=== PATIENT | male | born 1945 | race Caucasian/White ===

== ENCOUNTER 2017-01-15 07:47 | Outpatient (CLI) | payer MEDICARE ==
--- NOTE | 2017-01-15 09:18 | ULT ---
ULTRASOUND RETROPERITONEUM LIMTED: (ABDOMINAL AORTA) HISTORY: [id number] male for abdominal aortic aneurysm screening. FINDINGS: The caliber of the abdominal aorta is as follows (in cm): Proximal: 1.8 x 1.8 cm Mid: 2 x 1.6 cm Distal: 1.7 x 1.5 cm IMPRESSION: No abdominal aortic aneurysm. MOOKIE [place] POS: NEREIDA
== END 2017-01-15 07:48 | disposition home or self-care (01) ==
LOC: ULT 07:47
PROVIDERS: ATTEND Family Medicine
DX: Z13.6 Encounter for screening for cardiovascular disorders (principal); Z00.00 Encounter for general adult medical examination without abnormal findings
CPT/HCPCS: 76775

== ENCOUNTER 2023-07-26 05:36 | Inpatient (IN) | payer OTHER ==
[2023-07-26] MEDS ORDERED: Ondansetron PF 4 MG/2 ML Vial IVP PRN (08:09)
[2023-07-26] MEDS ORDERED: Glucagon 1 MG/ML KIT IM PRN (08:09)
[2023-07-26] MEDS ORDERED: Dextrose 5% in Water 1,000 ML IV PRN (08:09)
[2023-07-26] MEDS ORDERED: Dextrose 50% Abboject 50 ML SYRINGE SLOW IVP PRN (08:09)
[2023-07-26] MEDS ORDERED: Morphine 2 MG/ML VIAL SLOW IVP PRN (08:12)
[2023-07-26] MEDS: Sodium Chloride 0.9% 1,000 ML IV SCH (09:29)
[2023-07-26] MEDS: Enoxaparin 40 MG (0.4 mL) SYRINGE SC SCH (09:30)
[2023-07-26] MEDS ORDERED: PROPOFOL 200 MG/20 ML VIAL ONE (13:11)
[2023-07-26] MEDS ORDERED: Lidocaine 1% PF 5 ML VIAL ONE (13:11)
[2023-07-26] MEDS ORDERED: PROPOFOL 20 ML ONE ×3 (13:27→13:52)
[2023-07-26] MEDS: Pantoprazole 40 MG VIAL IVP SCH ×2 (16:58→20:40)
[2023-07-26] MEDS: HumaLOG 300 UNITS/3 ML VIAL SC PRN (19:03)
[2023-07-27 04:19] LABS: #Basophils 0.04 10x3/uL (0.0-0.2); %Basophils 0.6 % (0.0-1.0); %Eosinophils 2.6 % (0.0-10.0); %Lymphocytes 18.8 % (21.0-51.0); %Monocytes 8.9 % (0.0-10.0); %Neutrophils 68.6 % (42.0-75.0); Hematocrit 35.3 % (42.0-52.0); Mean Corpuscular Hemoglobin 30.7 pg (27.0-31.0); Mean Corpuscular Volume 90.3 fL (78.0-98.0); Mean Platelet Volume 9.6 fL (7.4-10.4); Platelet Count 159 10x3/uL (130-400); RBC Distribution Width 13.3 % (11.5-14.5); Red Blood Cell (RBC) Count 3.91 mill/uL (4.70-6.10)
[2023-07-27 04:46] LABS: Anion Gap 12 mmol/L (10-20); BUN (Urea Nitrogen) 16 mg/dL (8.4-25.7); Calc. Creatinine Clearance 92 mL/min (70-130); Calcium 7.9 mg/dL (7.8-10.44); Carbon Dioxide 24 mmol/L (23-31); Chloride 103 mmol/L (98-107); Estimated GFR 92; Glucose 153 mg/dL (83-110); Potassium 3.7 mmol/L (3.5-5.1); Sodium 135 mmol/L (136-145)
[2023-07-27] MEDS ORDERED: Magnevist 469MG/ML 20 ML VIAL ONE (13:09)
[2023-07-28] MEDS: hydrALAZINE 20 MG/ML VIAL SLOW IVP PRN (00:35)
[2023-07-28 05:11] LABS: #Basophils 0.04 10x3/uL (0.0-0.2); %Basophils 0.8 % (0.0-1.0); %Eosinophils 3.7 % (0.0-10.0); %Lymphocytes 27.2 % (21.0-51.0); %Monocytes 8.9 % (0.0-10.0); Hematocrit 36.3 % (42.0-52.0); Hemoglobin 12.6 g/dL (14.0-18.0); Mean Corpuscular HGB CONC 34.7 g/dL (32.0-36.0); Mean Corpuscular Hemoglobin 30.1 pg (27.0-31.0); Mean Corpuscular Volume 86.8 fL (78.0-98.0); Mean Platelet Volume 9.5 fL (7.4-10.4); Platelet Count 172 10x3/uL (130-400); RBC Distribution Width 13.2 % (11.5-14.5); Red Blood Cell (RBC) Count 4.18 mill/uL (4.70-6.10)
[2023-07-28 05:31] LABS: Anion Gap 12 mmol/L (10-20); BUN (Urea Nitrogen) 9 mg/dL (8.4-25.7); Calc. Creatinine Clearance 100 mL/min (70-130); Calcium 7.7 mg/dL (7.8-10.44); Carbon Dioxide 24 mmol/L (23-31); Chloride 105 mmol/L (98-107); Estimated GFR 95; Glucose 151 mg/dL (83-110); Potassium 3.3 mmol/L (3.5-5.1); Sodium 138 mmol/L (136-145)
[2023-07-28] MEDS: Hydrochlorothiazide 25 MG TAB PO SCH (11:24)
[2023-07-28] MEDS: Losartan 25 MG TAB PO SCH (11:24)
[2023-07-28] MEDS: Polyethylene Glycol 3350 17 GM Packet PO SCH (16:55)
[2023-07-29 04:40] LABS: #Basophils Less than 0.03 10x3/uL (0.0-0.2); %Basophils 0.2 % (0.0-1.0); %Eosinophils 4.4 % (0.0-10.0); %Lymphocytes 25.8 % (21.0-51.0); %Monocytes 10.7 % (0.0-10.0); %Neutrophils 58.7 % (42.0-75.0); Hematocrit 36.7 % (42.0-52.0); Hemoglobin 12.7 g/dL (14.0-18.0); Mean Corpuscular HGB CONC 34.6 g/dL (32.0-36.0); Mean Corpuscular Hemoglobin 30.7 pg (27.0-31.0); Mean Corpuscular Volume 88.6 fL (78.0-98.0); Mean Platelet Volume 9.7 fL (7.4-10.4); Platelet Count 186 10x3/uL (130-400); RBC Distribution Width 13.2 % (11.5-14.5); Red Blood Cell (RBC) Count 4.14 mill/uL (4.70-6.10)
[2023-07-29 05:13] LABS: Anion Gap 11 mmol/L (10-20); BUN (Urea Nitrogen) 7 mg/dL (8.4-25.7); Calc. Creatinine Clearance 94 mL/min (70-130); Calcium 8.1 mg/dL (7.8-10.44); Carbon Dioxide 24 mmol/L (23-31); Chloride 104 mmol/L (98-107); Estimated GFR 93; Glucose 178 mg/dL (83-110); Potassium 3.4 mmol/L (3.5-5.1); Sodium 136 mmol/L (136-145)
[2023-07-29 07:13] VITALS: BMI 23.7
[2023-07-29] MEDS: Polyethylene Glycol 3350 17 GM Packet PO SCH (09:37)
[2023-07-29] MEDS: Losartan 25 MG TAB PO SCH (09:37)
[2023-07-29] MEDS: Hydrochlorothiazide 25 MG TAB PO SCH (09:37)
[2023-07-30 05:25] LABS: #Basophils 0.03 10x3/uL (0.0-0.2); %Basophils 0.5 % (0.0-1.0); %Eosinophils 4.7 % (0.0-10.0); %Lymphocytes 25.2 % (21.0-51.0); %Monocytes 10.6 % (0.0-10.0); %Neutrophils 58.8 % (42.0-75.0); Hematocrit 39.6 % (42.0-52.0); Hemoglobin 13.7 g/dL (14.0-18.0); Mean Corpuscular HGB CONC 34.6 g/dL (32.0-36.0); Mean Corpuscular Volume 86.8 fL (78.0-98.0); Mean Platelet Volume 9.1 fL (7.4-10.4); Platelet Count 183 10x3/uL (130-400); RBC Distribution Width 13.4 % (11.5-14.5); Red Blood Cell (RBC) Count 4.56 mill/uL (4.70-6.10)
[2023-07-30 05:44] LABS: Anion Gap 11 mmol/L (10-20); BUN (Urea Nitrogen) 7 mg/dL (8.4-25.7); Calc. Creatinine Clearance 100 mL/min (70-130); Calcium 8.4 mg/dL (7.8-10.44); Carbon Dioxide 24 mmol/L (23-31); Chloride 102 mmol/L (98-107); Estimated GFR 93; Glucose 213 mg/dL (83-110); Potassium 3.6 mmol/L (3.5-5.1); Sodium 133 mmol/L (136-145)
[2023-07-30] MEDS: HumaLOG 300 UNITS/3 ML VIAL SC PRN (22:16)
[2023-07-31] MEDS: traZODone HCl 50 MG TAB PO SCH ×2 (00:42→20:37)
[2023-07-31 05:10] LABS: Anion Gap 11 mmol/L (10-20); BUN (Urea Nitrogen) 7 mg/dL (8.4-25.7); Calc. Creatinine Clearance 94 mL/min (70-130); Calcium 8.8 mg/dL (7.8-10.44); Carbon Dioxide 25 mmol/L (23-31); Chloride 100 mmol/L (98-107); Estimated GFR 92; Glucose 232 mg/dL (83-110); Potassium 3.5 mmol/L (3.5-5.1); Sodium 132 mmol/L (136-145)
[2023-07-31] MEDS ORDERED: traZODone HCl 50 MG TAB PO SCH (09:00)
[2023-07-31] MEDS: NS 0.9% w/ 40 MEQ KCL 1,000 ML IV SCH (09:20)
[2023-07-31] MEDS: FLUoxetine HCl 20 MG CAP PO SCH (09:21)
[2023-07-31] MEDS: Acetaminophen 325 MG TAB PO PRN (11:00)
[2023-08-01 05:45] LABS: #Basophils 0.03 10x3/uL (0.0-0.2); %Basophils 0.7 % (0.0-1.0); %Eosinophils 6.8 % (0.0-10.0); %Lymphocytes 30.8 % (21.0-51.0); %Neutrophils 49.3 % (42.0-75.0); Hematocrit 38.8 % (42.0-52.0); Hemoglobin 13.1 g/dL (14.0-18.0); Mean Corpuscular HGB CONC 33.8 g/dL (32.0-36.0); Mean Corpuscular Hemoglobin 29.6 pg (27.0-31.0); Mean Corpuscular Volume 87.8 fL (78.0-98.0); Platelet Count 196 10x3/uL (130-400); RBC Distribution Width 13.6 % (11.5-14.5); Red Blood Cell (RBC) Count 4.42 mill/uL (4.70-6.10)
[2023-08-01 06:06] LABS: Anion Gap 15 mmol/L (10-20); BUN (Urea Nitrogen) 8 mg/dL (8.4-25.7); Calc. Creatinine Clearance 91 mL/min (70-130); Calcium 8.1 mg/dL (7.8-10.44); Carbon Dioxide 22 mmol/L (23-31); Chloride 108 mmol/L (98-107); Estimated GFR 91; Glucose 205 mg/dL (83-110); Magnesium 1.8 mg/dL (1.6-2.6); Potassium 4.3 mmol/L (3.5-5.1); Sodium 141 mmol/L (136-145)
[2023-08-01 08:40] VITALS: BP 125/75; TEMP 98.3
[2023-08-01] MEDS: Lactated Ringer's 1,000 ML IV SCH (09:19)
== END 2023-08-01 15:52 | disposition home or self-care (01) | DRG 380 ==
LOC: MSONC 05:36 → OBSVTOIN 08:09
PROVIDERS: ADMIT Internal Medicine; ATTEND Internal Medicine
PROC: 0DB98ZX Excision of Duodenum, Via Natural or Artificial Opening Endoscopic, Diagnostic (ICD-10-PCS; principal; 2023-07-26)
PROC: 0DB78ZX Excision of Stomach, Pylorus, Via Natural or Artificial Opening Endoscopic, Diagnostic (ICD-10-PCS; 2023-07-26)
DX: K31.5 Obstruction of duodenum (principal); E11.10 Type 2 diabetes mellitus with ketoacidosis without coma; K22.10 Ulcer of esophagus without bleeding; N17.9 Acute kidney failure, unspecified; E87.1 Hypo-osmolality and hyponatremia; K56.609 Unspecified intestinal obstruction, unspecified as to partial versus complete obstruction; I10 Essential (primary) hypertension; K21.00 Gastro-esophageal reflux disease with esophagitis, without bleeding; K26.9 Duodenal ulcer, unspecified as acute or chronic, without hemorrhage or perforation; E11.65 Type 2 diabetes mellitus with hyperglycemia; K31.1 Adult hypertrophic pyloric stenosis; K29.00 Acute gastritis without bleeding; E11.9 Type 2 diabetes mellitus without complications; Z87.891 Personal history of nicotine dependence; Z79.4 Long term (current) use of insulin; Z88.0 Allergy status to penicillin; Z88.2 Allergy status to sulfonamides; Z79.899 Other long term (current) drug therapy; Z90.49 Acquired absence of other specified parts of digestive tract
CPT/HCPCS: 36415; 36416; 70450; 70553; 71045; 74177; 80048; 80053; 81001; 82010; 82805; 83036; 83735; 84443; 85025; 88305; 88342; 93005; 96374; 96375; A9579; C9113; J0360; J0696; J1650; J1815; J2704; J3480; J7050; J7120; Q9967; S0028

== ENCOUNTER 2023-09-05 12:18 | Day surgery (SDC) | payer OTHER ==
[2023-09-05] MEDS ORDERED: PROPOFOL 0 ML ONE (13:51)
[2023-09-05] MEDS ORDERED: Lidocaine 1% PF 5 ML VIAL ONE (14:17)
[2023-09-05] MEDS ORDERED: SUCCINYLCHOLINE/SOD CL,ISO/PF 200 MG/10 ML SYRINGE FS ONE (14:20)
[2023-09-05] MEDS ORDERED: Ondansetron PF 4 MG/2 ML Vial ONE (14:27)
[2023-09-05] MEDS ORDERED: Esmolol 100 MG/10 ML VIAL ONE (14:38)
== END 2023-09-05 16:47 | disposition home or self-care (01) ==
LOC: SDC 12:18
PROVIDERS: ATTEND Internal Medicine Gastroenterology
PROC: 0D798ZZ Dilation of Duodenum, Via Natural or Artificial Opening Endoscopic (ICD-10-PCS; principal; 2023-09-05)
DX: K31.5 Obstruction of duodenum (principal); I10 Essential (primary) hypertension; E78.00 Pure hypercholesterolemia, unspecified; E11.9 Type 2 diabetes mellitus without complications; F41.9 Anxiety disorder, unspecified; F17.220 Nicotine dependence, chewing tobacco, uncomplicated; Z79.4 Long term (current) use of insulin; Z79.899 Other long term (current) drug therapy; Z88.2 Allergy status to sulfonamides; Z88.0 Allergy status to penicillin
CPT/HCPCS: 43245; 82962; J2405; 36416; J2704

== ENCOUNTER 2023-09-13 12:56 | Outpatient (CLI) | payer OTHER ==
[2023-09-13 14:39] LABS: #Basophils 0.03 10x3/uL (0.0-0.2); #Eosinphils 0.15 10x3/uL (0.0-0.5); #Monocytes 0.52 10x3/uL (0.0-1.1); #Neutrophils 3.28 10x3/uL (1.5-8.4); %Basophils 0.6 % (0.0-2.0); %Eosinophils 2.8 % (0.0-6.0); %Lymphocytes 23.9 % (18.0-47.0); %Monocytes 9.9 % (0.0-10.0); %Neutrophils 62.2 % (40.0-75.0); Hemoglobin 14.8 g/dL (13.5-17.5); Mean Corpuscular HGB CONC 34.4 g/dL (32.0-36.0); Mean Corpuscular Hemoglobin 30.3 pg (27.0-33.0); Mean Corpuscular Volume 88.1 fL (81.2-95.1); Mean Platelet Volume 9.2 fL (7.4-10.4); Platelet Count 230 10x3/uL (150-450); RBC Distribution Width 13.1 % (11.5-14.5); Red Blood Cell (RBC) Count 4.88 10x6/uL (4.32-5.72); White Blood Cell (WBC) Count 5.3 10x3/uL (3.5-10.5)
[2023-09-13 15:24] LABS: Anion Gap 17 mmol/L (10-20); BUN (Urea Nitrogen) 13 mg/dL (8.4-25.7); Calc. Creatinine Clearance 0 mL/min (70-130); Calcium 9.3 mg/dL (7.8-10.44); Carbon Dioxide 24 mmol/L (23-31); Chloride 93 mmol/L (98-107); Estimated GFR 88; Glucose 252 mg/dL (83-110); Potassium 4.7 mmol/L (3.5-5.1); Sodium 129 mmol/L (136-145)
== END 2023-09-13 12:57 | disposition home or self-care (01) ==
LOC: LABBT 12:56
PROVIDERS: ATTEND Surgery
DX: Z01.818 Encounter for other preprocedural examination (principal); K31.1 Adult hypertrophic pyloric stenosis
CPT/HCPCS: 80048; 85025; 93005; 93010

== ENCOUNTER 2023-10-06 14:01 | Inpatient (IN) | payer OTHER, MEDICARE ==
[~2023-10-06 14:01] MED LIST: Iopamidol-370 76% 500 ML MDV (1 ML CHARGE) ONE
[2023-10-06 14:52] LABS: #Basophils 0.03 10x3/uL (0.0-0.2); %Basophils 0.4 % (0.0-1.0); %Eosinophils 2.4 % (0.0-10.0); %Lymphocytes 20.3 % (21.0-51.0); %Monocytes 12.2 % (0.0-10.0); %Neutrophils 64.3 % (42.0-75.0); Hematocrit 45.1 % (42.0-52.0); Hemoglobin 15.7 g/dL (14.0-18.0); Mean Corpuscular HGB CONC 34.8 g/dL (32.0-36.0); Mean Corpuscular Hemoglobin 30.2 pg (27.0-31.0); Mean Corpuscular Volume 86.7 fL (78.0-98.0); Mean Platelet Volume 9.1 fL (7.4-10.4); Platelet Count 283 10x3/uL (130-400)
[2023-10-06 15:11] LABS: ALT (SGPT) 24 U/L (8-55); AST (SGOT) 18 U/L (5-34); Albumin 3.3 g/dL (3.4-4.8); Alkaline Phosphatase 94 U/L (40-110); Anion Gap 15 mmol/L (10-20); BUN (Urea Nitrogen) 13 mg/dL (8.4-25.7); Calc. Creatinine Clearance 0 mL/min (70-130); Calcium 9.3 mg/dL (7.8-10.44); Carbon Dioxide 25 mmol/L (23-31); Chloride 93 mmol/L (98-107); Estimated GFR 88; Globulin 2.7 g/dL (2.4-3.5); Glucose 350 mg/dL (83-110); Lipase 7 U/L (8-78); Magnesium 1.7 mg/dL (1.6-2.6); Sodium 129 mmol/L (136-145)
[2023-10-06 15:14] LABS: Troponin I 0.015 ng/mL (< 0.028)
[2023-10-06 15:19] LABS: Bacteria/HPF None Seen HPF (None Seen); Bilirubin Negative (Negative); Blood, Urine Negative (Negative); CAUTI Indications for Culture Dysuria,urgency,freq; Clarity Turbid (Clear); Glucose, Urine (Dipstick) 150 mg/dL (Negative); Ketone, Urine Trace mg/dL (Negative); Leukocyte Negative Leu/uL (Negative); Nitrite Negative (Negative); Protein, Urine (Dipstick) Negative (Neg-Trace); RBC/HPF 0-3 HPF (0-3); Specific Gravity, Urine 1.015 (1.002-1.036); Squamous Epithelial None Seen HPF (0-3); Urobilinogen Normal mg/dL (Less than 2); WBC/HPF 0-3 HPF (0-3); pH, Urine 7.5 (5.0-9.0)
[2023-10-06 15:27] LABS: Urine Culture Reflex No No
[2023-10-06] MEDS ORDERED: Ondansetron PF 4 MG/2 ML Vial IVP PRN (16:12)
[2023-10-06] MEDS ORDERED: Acetaminophen 325 MG TAB PO PRN (16:12)
[2023-10-06] MEDS ORDERED: Dextrose 5% in Water 1,000 ML IV PRN (16:19)
[2023-10-06] MEDS ORDERED: Glucagon 1 MG/ML KIT IM PRN (16:19)
[2023-10-06] MEDS ORDERED: Dextrose 50% Abboject 50 ML SYRINGE SLOW IVP PRN (16:19)
[2023-10-06] MEDS ORDERED: Morphine 2 MG/ML VIAL SLOW IVP PRN (17:57)
[2023-10-06] MEDS ORDERED: oxyCODONE 5 MG TAB PO PRN (17:58)
[2023-10-06] MEDS ORDERED: Zolpidem Tartrate 5 MG TAB PO PRN (17:59)
[2023-10-06 18:12] VITALS: BMI 22.2
[2023-10-06] MEDS: Pantoprazole 40 MG VIAL IVP SCH (18:27)
[2023-10-06] MEDS: Insulin Lispro 100 UNIT/ML 10 ML VIAL SC PRN (18:27)
[2023-10-06] MEDS: Sodium Chloride 0.9% 1,000 ML IV SCH (18:28)
[2023-10-06] MEDS: Melatonin 3 MG TAB PO PRN (19:56)
[2023-10-07 06:51] LABS: #Basophils 0.04 10x3/uL (0.0-0.2); %Basophils 0.7 % (0.0-1.0); %Eosinophils 5.8 % (0.0-10.0); %Lymphocytes 34.6 % (21.0-51.0); %Monocytes 11.4 % (0.0-10.0); %Neutrophils 47.1 % (42.0-75.0); Hematocrit 38.5 % (42.0-52.0); Hemoglobin 13.1 g/dL (14.0-18.0); Mean Corpuscular Hemoglobin 30.2 pg (27.0-31.0); Mean Corpuscular Volume 88.7 fL (78.0-98.0); Mean Platelet Volume 9.5 fL (7.4-10.4); Platelet Count 227 10x3/uL (130-400); RBC Distribution Width 13.1 % (11.5-14.5); Red Blood Cell (RBC) Count 4.34 mill/uL (4.70-6.10)
[2023-10-07 07:04] LABS: INR-International Normal Ratio 1.2; PTT 33.7 sec (22.9-36.1); Prothrombin Time 14.7 sec (12.0-14.7)
[2023-10-07 07:28] LABS: ALT (SGPT) 18 U/L (8-55); AST (SGOT) 13 U/L (5-34); Albumin 2.6 g/dL (3.4-4.8); Alkaline Phosphatase 71 U/L (40-110); Anion Gap 10 mmol/L (10-20); BUN (Urea Nitrogen) 11 mg/dL (8.4-25.7); Bilirubin, Total 0.5 mg/dL (0.2-1.2); Calc. Creatinine Clearance 95 mL/min (70-130); Calcium 7.8 mg/dL (7.8-10.44); Carbon Dioxide 22 mmol/L (23-31); Chloride 102 mmol/L (98-107); Estimated GFR 94; Globulin 2.1 g/dL (2.4-3.5); Glucose 182 mg/dL (83-110); Magnesium 1.6 mg/dL (1.6-2.6); Potassium 3.7 mmol/L (3.5-5.1); Protein, Total 4.7 g/dL (5.8-8.1); Sodium 130 mmol/L (136-145)
[2023-10-07 12:21] VITALS: BMI 22.2
[2023-10-07] MEDS ORDERED: PROPOFOL 20 ML ONE (13:44)
[2023-10-07] MEDS ORDERED: SUCCINYLCHOLINE/SOD CL,ISO/PF 200 MG/10 ML SYRINGE FS ONE (13:45)
[2023-10-07] MEDS ORDERED: Lidocaine 1% PF 5 ML VIAL ONE (13:56)
[2023-10-07] MEDS ORDERED: Ondansetron PF 4 MG/2 ML Vial ONE (14:25)
[2023-10-07] MEDS ORDERED: traZODone HCl 50 MG TAB PO PRN (18:00)
[2023-10-07] MEDS: Losartan 25 MG TAB PO SCH (18:29)
[2023-10-07] MEDS: Insulin Glargine 30 UNITS/0.3 ML VIAL SC SCH (20:04)
[2023-10-08 06:12] LABS: #Basophils 0.03 10x3/uL (0.0-0.2); %Basophils 0.4 % (0.0-1.0); %Eosinophils 5.4 % (0.0-10.0); %Lymphocytes 24.6 % (21.0-51.0); %Monocytes 10.2 % (0.0-10.0); %Neutrophils 58.8 % (42.0-75.0); Hematocrit 38.2 % (42.0-52.0); Hemoglobin 12.8 g/dL (14.0-18.0); Mean Corpuscular HGB CONC 33.5 g/dL (32.0-36.0); Mean Corpuscular Volume 89.7 fL (78.0-98.0); Mean Platelet Volume 9.3 fL (7.4-10.4); Platelet Count 241 10x3/uL (130-400); RBC Distribution Width 13.1 % (11.5-14.5); Red Blood Cell (RBC) Count 4.26 mill/uL (4.70-6.10)
[2023-10-08 06:31] LABS: Anion Gap 9 mmol/L (10-20); BUN (Urea Nitrogen) 7 mg/dL (8.4-25.7); Calc. Creatinine Clearance 86 mL/min (70-130); Calcium 8.1 mg/dL (7.8-10.44); Carbon Dioxide 27 mmol/L (23-31); Chloride 103 mmol/L (98-107); Estimated GFR 92; Glucose 130 mg/dL (83-110); Potassium 3.7 mmol/L (3.5-5.1); Sodium 135 mmol/L (136-145)
[2023-10-08] MEDS: Montelukast Sodium 10 mg Tablet PO SCH (10:11)
[2023-10-08] MEDS: Losartan 25 MG TAB PO SCH (10:11)
[2023-10-08] MEDS: FLUoxetine HCl 20 MG CAP PO SCH (10:11)
[2023-10-08] MEDS: Metoclopramide HCl 10 MG TAB PO SCH (21:25)
[2023-10-09 08:26] VITALS: BP 159/88; TEMP 97.5
== END 2023-10-09 12:56 | disposition home health service (06) | DRG 381 ==
LOC: ERS 14:01 → SURG A 16:27
PROVIDERS: ADMIT Internal Medicine; ATTEND Internal Medicine
PROC: 0DB98ZX Excision of Duodenum, Via Natural or Artificial Opening Endoscopic, Diagnostic (ICD-10-PCS; principal; 2023-10-07)
DX: K31.5 Obstruction of duodenum (principal); E44.0 Moderate protein-calorie malnutrition; E87.1 Hypo-osmolality and hyponatremia; K22.10 Ulcer of esophagus without bleeding; K31.89 Other diseases of stomach and duodenum; E86.0 Dehydration; Z88.0 Allergy status to penicillin; Z88.2 Allergy status to sulfonamides; I10 Essential (primary) hypertension; Z79.4 Long term (current) use of insulin; E11.65 Type 2 diabetes mellitus with hyperglycemia; Z98.890 Other specified postprocedural states; F41.9 Anxiety disorder, unspecified; Z87.891 Personal history of nicotine dependence; Z90.49 Acquired absence of other specified parts of digestive tract; Z60.2 Problems related to living alone; Z68.22 Body mass index [BMI] 22.0-22.9, adult; Z79.899 Other long term (current) drug therapy
CPT/HCPCS: 36415; 36416; 71045; 74177; 80048; 80053; 81001; 83690; 83735; 84484; 85025; 85610; 85730; 87040; 87086; 88305; 88342; 93005; J1815; J2405; J2470; J2704; J7030; Q9967

== ENCOUNTER 2023-10-24 05:34 | Inpatient (IN) | payer OTHER ==
[2023-10-24] MEDS ORDERED: Famotidine/PF 20 mg/2ml Vial ONE (07:21)
[2023-10-24] MEDS ORDERED: CEFAZOLIN 2 GM VIAL ONE (07:25)
[2023-10-24] MEDS ORDERED: HumaLOG 300 UNITS/3 ML VIAL ONE (07:25)
[2023-10-24] MEDS ORDERED: Sodium Chloride 0.9% 100 ML ONE (07:25)
[2023-10-24] MEDS ORDERED: SUCCINYLCHOLINE/SOD CL,ISO/PF 200 MG/10 ML SYRINGE FS ONE (07:45)
[2023-10-24] MEDS ORDERED: Lidocaine 1% PF 5 ML VIAL ONE (07:45)
[2023-10-24] MEDS ORDERED: Rocuronium Bromide 10 MG/ML (10ML VIAL) ONE (07:45)
[2023-10-24] MEDS ORDERED: PHENYLEPHRINE-NS 100 MCG/ML 10 ML SYRINGE ONE (07:45)
[2023-10-24] MEDS ORDERED: ePHEDrine Sulfate 50 MG/10 ML VIAL ONE ×2 (08:02→09:03)
[2023-10-24] MEDS ORDERED: PROPOFOL 20 ML ONE (08:30)
[2023-10-24] MEDS ORDERED: fentaNYL PF 100 MCG/2 ML SYRINGE ONE ×4 (08:31→09:58)
[2023-10-24] MEDS ORDERED: Ondansetron PF 4 MG/2 ML Vial ONE (09:03)
[2023-10-24] MEDS ORDERED: PROPOFOL 0 ML ONE ×2 (09:03)
[2023-10-24] MEDS ORDERED: SUGAMMADEX SODIUM 200 MG/2 ML VIAL ONE (09:03)
[2023-10-24] MEDS ORDERED: Ondansetron HCl/PF 4 MG/2 ML Vial IVP PRN (09:06)
[2023-10-24] MEDS ORDERED: Promethazine HCl 25 MG/ML VIAL IM PRN ×2 (09:06→09:51)
[2023-10-24] MEDS ORDERED: Labetalol HCl 100 MG/20 ML VIAL ONE (09:21)
[2023-10-24] MEDS ORDERED: Dextrose 50% Abboject 50 ML SYRINGE SLOW IVP PRN (09:51)
[2023-10-24] MEDS ORDERED: Ipratropium/Albuterol 3 ML NEB NEB PRN (09:51)
[2023-10-24] MEDS ORDERED: Dextrose 5% in Water 1,000 ML IV PRN (09:51)
[2023-10-24] MEDS ORDERED: Glucagon 1 MG/ML KIT IM PRN (09:51)
[2023-10-24] MEDS ORDERED: Insulin Regular, Human 100 UNIT/ML 10 ML VIAL ONE (10:05)
[2023-10-24] MEDS ORDERED: fentaNYL 50 mcg/mL 1 mL Vial ONE (10:42)
[2023-10-24] MEDS: Sodium Chloride 0.9% 1,000 ML IV SCH (12:47)
[2023-10-24] MEDS: Metoclopramide HCl 10 MG TAB PO SCH (12:48)
[2023-10-24] MEDS: Acetaminophen 325 MG (10.15 ML) UDCUP PO SCH (12:48)
[2023-10-24] MEDS: Insulin Regular, Human 100 UNIT/ML 10 ML VIAL SC PRN (12:55)
[2023-10-24] MEDS: fentaNYL 50 mcg/mL 1 mL Vial SLOW IVP PRN (16:39)
[2023-10-24] MEDS: Insulin Glargine 30 UNITS/0.3 ML VIAL SC SCH (20:44)
[2023-10-24] MEDS: traZODone HCl 50 MG TAB PO SCH (20:44)
[2023-10-25 04:57] LABS: #Basophils Less than 0.03 10x3/uL (0.0-0.2); #Eosinphils Less than 0.03 10x3/uL (0.0-0.7); %Basophils 0.1 % (0.0-1.0); %Eosinophils 0.2 % (0.0-10.0); %Lymphocytes 12.1 % (21.0-51.0); %Neutrophils 82.2 % (42.0-75.0); Hemoglobin 14.5 g/dL (14.0-18.0); Mean Corpuscular HGB CONC 33.7 g/dL (32.0-36.0); Mean Corpuscular Hemoglobin 29.6 pg (27.0-31.0); Mean Corpuscular Volume 87.8 fL (78.0-98.0); Mean Platelet Volume 9.8 fL (7.4-10.4); Platelet Count 184 10x3/uL (130-400); RBC Distribution Width 13.6 % (11.5-14.5)
[2023-10-25 05:48] LABS: Anion Gap 13 mmol/L (10-20); BUN (Urea Nitrogen) 11 mg/dL (8.4-25.7); Calc. Creatinine Clearance 83 mL/min (70-130); Calcium 8.3 mg/dL (7.8-10.44); Carbon Dioxide 23 mmol/L (23-31); Chloride 105 mmol/L (98-107); Estimated GFR 92; Glucose 152 mg/dL (83-110); Potassium 4.3 mmol/L (3.5-5.1); Sodium 137 mmol/L (136-145)
[2023-10-25] MEDS: Enoxaparin 40 MG (0.4 mL) SYRINGE SC SCH (07:54)
[2023-10-25] MEDS: Pantoprazole DR 40 MG TAB PO SCH (07:55)
[2023-10-25] MEDS: Losartan 25 MG TAB PO SCH (07:55)
[2023-10-25] MEDS: Montelukast Sodium 10 mg Tablet PO SCH (07:55)
[2023-10-25] MEDS: FLUoxetine HCl 20 MG CAP PO SCH (07:55)
[2023-10-25] MEDS: Insulin Lispro 100 UNIT/ML 10 ML VIAL SC SCH (08:01)
[2023-10-25] MEDS: Hydrocodone-Acetamin 15 ML UDCUP PO PRN (14:25)
[2023-10-26] MEDS: Ondansetron PF 4 MG/2 ML Vial IVP PRN (21:40)
[2023-10-27] MEDS: hydrALAZINE 20 MG/ML VIAL SLOW IVP PRN (20:05)
[2023-10-28] MEDS ORDERED: MD-Gastroview 120 ML BOT ONE (07:44)
[2023-10-29] MEDS ORDERED: PROPOFOL 20 ML ONE (11:25)
[2023-10-29] MEDS ORDERED: fentaNYL PF 100 MCG/2 ML SYRINGE ONE (12:10)
[2023-10-29] MEDS ORDERED: EPINEPHrine 1 MG/ML VIAL ONE (12:10)
[2023-10-29] MEDS ORDERED: Bupivacaine 0.25% HCL 30 ML VIAL ONE (12:10)
[2023-10-29] MEDS ORDERED: Sodium Chloride 0.9% 100 ML ONE (12:19)
[2023-10-29] MEDS ORDERED: CEFAZOLIN 2 GM VIAL ONE (12:19)
[2023-10-29] MEDS ORDERED: SUCCINYLCHOLINE/SOD CL,ISO/PF 200 MG/10 ML SYRINGE FS ONE (12:24)
[2023-10-29] MEDS ORDERED: ePHEDrine Sulfate 50 MG/10 ML VIAL ONE (12:47)
[2023-10-29] MEDS ORDERED: PHENYLEPHRINE-NS 100 MCG/ML 10 ML SYRINGE ONE (13:25)
[2023-10-29] MEDS ORDERED: Ondansetron PF 4 MG/2 ML Vial ONE (13:30)
[2023-10-29] MEDS ORDERED: Ondansetron HCl/PF 4 MG/2 ML Vial IVP PRN (14:00)
[2023-10-30] MEDS: Hydrocodone-Acetamin 15 ML UDCUP PER TUBE PRN (12:29)
[2023-11-01 09:31] VITALS: BMI 21.7
[2023-11-01 10:54] VITALS: BMI 21.7
[2023-11-01] MEDS: Metoclopramide HCl 10 MG TAB PO SCH (20:40)
[2023-11-02] MEDS: Acetaminophen 325 MG (10.15 ML) UDCUP PO PRN (13:12)
[2023-11-03 11:49] LABS: Anion Gap 12 mmol/L (10-20); BUN (Urea Nitrogen) 10 mg/dL (8.4-25.7); Calc. Creatinine Clearance 90 mL/min (70-130); Calcium 7.7 mg/dL (7.8-10.44); Carbon Dioxide 27 mmol/L (23-31); Chloride 104 mmol/L (98-107); Estimated GFR 94; Glucose 160 mg/dL (83-110); Potassium 3.3 mmol/L (3.5-5.1); Sodium 140 mmol/L (136-145)
[2023-11-03] MEDS: Potassium Chloride 20 MEQ in Premix 1 BAG IVPB SCH (23:22)
[2023-11-04 12:07] LABS: Anion Gap 16 mmol/L (10-20); BUN (Urea Nitrogen) 11 mg/dL (8.4-25.7); Calc. Creatinine Clearance 93 mL/min (70-130); Calcium 7.8 mg/dL (7.8-10.44); Carbon Dioxide 23 mmol/L (23-31); Chloride 104 mmol/L (98-107); Estimated GFR 95; Glucose 207 mg/dL (83-110); Sodium 139 mmol/L (136-145)
[2023-11-05] MEDS: Lansoprazole 30 MG/10 ML UDCUP PER TUBE SCH (09:47)
[2023-11-05 11:23] VITALS: BP 166/83; TEMP 98.3
[2023-11-06] MEDS ORDERED: Lansoprazole 30 MG/10 ML UDCUP PER TUBE SCH (09:00)
[2023-11-06] MEDS ORDERED: Pantoprazole 40 MG GRANULES PACKET PER TUBE SCH (09:00)
== END 2023-11-05 11:30 | DRG 381 ==
LOC: SDC 05:34 → SURG A 11:12 → OBSVTOIN 10-25 14:29
PROVIDERS: ADMIT Surgery; ATTEND Surgery
PROC: 0DHA4UZ Insertion of Feeding Device into Jejunum, Percutaneous Endoscopic Approach (ICD-10-PCS; principal; 2023-10-29)
PROC: 3E033XZ Introduction of Vasopressor into Peripheral Vein, Percutaneous Approach (ICD-10-PCS; 2023-10-29)
DX: K31.1 Adult hypertrophic pyloric stenosis (principal); E46 Unspecified protein-calorie malnutrition; E11.65 Type 2 diabetes mellitus with hyperglycemia; I10 Essential (primary) hypertension; Z88.0 Allergy status to penicillin; Z88.2 Allergy status to sulfonamides; Z79.899 Other long term (current) drug therapy; Z79.4 Long term (current) use of insulin; E78.00 Pure hypercholesterolemia, unspecified; Z90.49 Acquired absence of other specified parts of digestive tract; Z87.891 Personal history of nicotine dependence; Z88.8 Allergy status to other drugs, medicaments and biological substances; Z68.21 Body mass index [BMI] 21.0-21.9, adult; E87.6 Hypokalemia
CPT/HCPCS: 36415; 36416; 49465; 74018; 80048; 85025; 96372; 96374; 96376; 99283; A4649; B4087; G0378; J0171; J0360; J0665; J1650; J1815; J2405; J2704; J3010; J3480; J3490; J7030; Q9963

== ENCOUNTER 2023-11-10 11:45 | Emergency (ER) | payer OTHER | END 2023-11-10 13:27 | disposition home or self-care (01) | LOC: ERS 11:45 | DX: K94.23 Gastrostomy malfunction (principal); E11.9 Type 2 diabetes mellitus without complications; I10 Essential (primary) hypertension | CPT/HCPCS: 99283 ==

== ENCOUNTER 2024-03-27 13:32 | Emergency (ER) | payer MEDICARE, OTHER ==
[2024-03-27 16:36] LABS: Actual Bicarbonate (HCO3v) 26.6 mEq/L (22-28); Base Excess 2.7 mEq/L (-2.0 to +3.0); Calcium, Ionized (venous) 1.08 mmol/L (1.16-1.32); Chloride (VBG) 98 mmol/L (98-106); Hematocrit-VBG 38 % (42.0-52.0); Potassium (VBG) 4.45 mmol/L (3.70-5.30); pH (venous) 7.455 (7.32-7.43)
[2024-03-27 16:39] LABS: Bilirubin Negative (Negative); Blood, Urine Negative (Negative); CAUTI Indications for Culture Alt mental st,lethar; Glucose, Urine (Dipstick) Greater than 1000 mg/dL (Negative); Ketone, Urine Negative (Negative); Leukocyte 250 Leu/uL (Negative); Nitrite Negative (Negative); Protein, Urine (Dipstick) Negative (Neg-Trace); RBC/HPF 0-3 HPF (0-3); Specific Gravity, Urine 1.021 (1.002-1.036); Squamous Epithelial None Seen HPF (0-3); Urobilinogen Normal mg/dL (Less than 2); pH, Urine 5.5 (5.0-9.0)
[2024-03-27 16:48] LABS: Bacteria/HPF 1+ HPF (None Seen); Clarity Cloudy (Clear)
[2024-03-27 16:49] LABS: WBC/HPF Greater than 50 HPF (0-3)
[2024-03-27 16:51] LABS: Urine Culture Reflex Yes Yes
[2024-03-27 16:55] LABS: #Basophils 0.04 10x3/uL (0.0-0.2); %Basophils 0.7 % (0.0-1.0); %Eosinophils 3.5 % (0.0-10.0); %Lymphocytes 24.8 % (21.0-51.0); %Monocytes 10.6 % (0.0-10.0); %Neutrophils 60.2 % (42.0-75.0); Hematocrit 38.8 % (42.0-52.0); Hemoglobin 12.6 g/dL (14.0-18.0); Mean Corpuscular HGB CONC 32.5 g/dL (32.0-36.0); Mean Corpuscular Hemoglobin 27.6 pg (27.0-31.0); Mean Corpuscular Volume 84.9 fL (78.0-98.0); Mean Platelet Volume 9.9 fL (7.4-10.4); Platelet Count 259 10x3/uL (130-400); RBC Distribution Width 13.1 % (11.5-14.5); Red Blood Cell (RBC) Count 4.57 mill/uL (4.70-6.10)
[2024-03-27 17:10] LABS: ALT (SGPT) 13 U/L (Less than 45); AST (SGOT) 17 U/L (11-34); Albumin 3.4 g/dL (3.1-4.5); Alkaline Phosphatase 86 U/L (40-110); Anion Gap 16 mmol/L (10-20); BUN (Urea Nitrogen) 26 mg/dL (8.4-25.7); Bilirubin, Total 0.3 mg/dL (0.3-1.2); Calc. Creatinine Clearance 0 mL/min (70-130); Calcium 9.1 mg/dL (7.8-10.44); Carbon Dioxide 25 mmol/L (23-31); Chloride 102 mmol/L (98-107); Estimated GFR 85; Globulin 3.2 g/dL (2.4-3.5); Glucose 144 mg/dL (83-110); Magnesium 1.8 mg/dL (1.6-2.6); Potassium 4.5 mmol/L (3.5-5.1); Protein, Total 6.6 g/dL (5.8-8.1); Sodium 138 mmol/L (136-145)
== END 2024-03-27 18:00 | disposition home or self-care (01) ==
LOC: ERS 13:32
DX: E11.65 Type 2 diabetes mellitus with hyperglycemia (principal); N39.0 Urinary tract infection, site not specified; I10 Essential (primary) hypertension; K21.9 Gastro-esophageal reflux disease without esophagitis; R54 Age-related physical debility; F41.9 Anxiety disorder, unspecified; Z55.0 Illiteracy and low-level literacy; Z79.4 Long term (current) use of insulin; Z79.84 Long term (current) use of oral hypoglycemic drugs; Z79.899 Other long term (current) drug therapy
CPT/HCPCS: 36415; 36416; 80053; 81001; 82010; 82805; 83735; 85025; 87077; 87086; 87186; 93005

== ENCOUNTER 2024-11-16 08:02 | Outpatient (CLI) | payer OTHER ==
[2024-11-16 09:06] LABS: Estimated GFR - POC 89.0
== END 2024-11-16 08:03 | disposition home or self-care (01) ==
LOC: SCSMRI 08:02
PROVIDERS: ATTEND Internal Medicine Gastroenterology
DX: C43.9 Malignant melanoma of skin, unspecified (principal); R79.89 Other specified abnormal findings of blood chemistry; K82.8 Other specified diseases of gallbladder; R63.0 Anorexia; L29.9 Pruritus, unspecified; K59.09 Other constipation; R10.9 Unspecified abdominal pain; R18.8 Other ascites
CPT/HCPCS: 36415; 76376; 82565 ×2; S8037; 74183